=== PATIENT | female | born 1950 | race Caucasian/White ===

== ENCOUNTER 2020-12-01 12:05 | Emergency (ER) | payer MEDICARE, OTHER ==
[2020-12-01] MEDS ORDERED: TETANUS/DIPHTHERIA/PERTUSSIS 0.5 ML SYRINGE IM ONE (12:13)
[2020-12-01] MEDS ORDERED: BUFFERED LIDOCAINE 10 ML SYRINGE SUBQ STA (12:27)
--- NOTE | 2020-12-01 12:31 | ED Physician Documentation ---
PD HPI UPPER EXT INJURY - Stated complaint Stated Complaint: RT HAND WOUND - Chief complaint Chief Complaint: Laceration - History obtained from History obtained from: Patient - History of Present Illness Location: Right, Finger (5th digit) Type of injury: Laceration (from a ladder) Where injury occurred: Home Timing - onset: How many minutes ago (45) Timing - duration: Minutes (45) Timing - details: Abrupt onset Pain level max: 6 Pain level now: 4 Improved by: Rest Worsened by: Moving, Palpating Associated symptoms: No: Weakness, Numbness, Tingling, Swelling, Discolored Contributing factors: No: Anticoagulated Recently seen: Not recently seen - Additonal information Additional information: R handed. 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 - Past Surgical History Past Surgical History: Yes - Present Medications Home Medications: Ambulatory Orders Medication Instructions Recorded Confirmed Aspirin [Aspir 81] 81 mg PO DAILY 08/13/13 12/01/20 Multivitamin,Ther and Minerals 1 each PO DAILY 08/13/13 12/01/20 [Vitamin and Minerals] [place]-3 Fatty Acids/Fish Oil [Fish 1 each PO PRN PRN 12/01/20 12/01/20 Oil Conc 1,000 mg Softgel] - Allergies Allergies/Adverse Reactions: Allergies Allergy/AdvReac Type Severity Reaction Status Date / Time No Known Drug Allergies Allergy Verified 12/01/20 12:12 - Living Situation Living Situation: reports: With family Living Arrangement: reports: At home - Social History Does the pt smoke?: No Smoking Status: Never smoker Does the pt drink ETOH?: No Does the pt have substance abuse?: No - Immunizations Immunizations are current?: Yes PD ED PE NORMAL - Vitals Vital signs reviewed: Yes - General General: Alert and oriented X 3, No acute distress - HEENT HEENT: Moist mucous membranes - Derm Derm: Warm and dry - Neuro Neuro: Alert and oriented X 3 PD ED PE EXPANDED - Extremities GRACE UE/Hands Visual: 1 - laceration (Flap laceration, 1 cm, U-shaped. Neurovascular intact. No tendon injury) Results - Vitals Vitals: Vital Signs - 24 hr 12/01/20 12/01/20 12:08 13:35 Temperature 36.8 C Heart Rate 97 76 Respiratory 17 18 Rate Blood Pressure 196/90 H 135/72 H O2 Saturation 99 99 Oxygen O2 Source Room air Procedures - Laceration (location) R 5th digit Length in cm: 1 Wound type: Curved, Flap, Into subcut fat Neurovascular status: Sensory intact, Motor intact, Vascular intact Tendon involvement: Tendon intact Anesthesia: Lidocaine 1% Wound preparation: Irrigated copiously NS Skin layer closure: Nylon, Interrupted, Size #-0 - enter number (4), Sutures - enter # (2) Other: Patient tolerated well, No complications, Neurovascular intact, Tetanus booster given (tdap) PD MEDICAL DECISION MAKING - ED course Complexity details: reviewed results, re-evaluated patient, considered differential, d/w patient ED course: Wound was cleansed. 2 sutures were utilized to hold the flap in place. Patient counseled that this flap may not readhere and may off, but will provide a biological dressing for now. Wound was cleansed and bandaged. Tetanus up-to-date. Warnings of infection and instructions on wound care given at bedside. Also counseled on how to minimize scarring. Patient counseled regarding signs and symptoms for which I believe and urgent re-evaluation would be necessary. Patient with good understanding of and agreement to plan and is comfortable going home at this time This document was made in part using voice recognition software. While efforts are made to proofread this document, sound alike and grammatical errors may occur. Departure - Departure Disposition: 01 Home, Self Care Clinical Impression: Laceration Condition: Good Instructions: ED Laceration Hand Follow-Up: Your,doctor in 10 to 14 days [Other] Comments: Keep the wound clean. Return if you worsen. Follow-up with your doctor in 10 to 14 days for suture removal. Return if you notice redness, swelling or drainage from the wound. You can use the splint to help protect the finger for the next several days. As we discussed, the small flap of skin may still fall off and , depending on the blood supply reaching this piece of skin. Discharge Date/Time: 12/01/20 13:35
[2020-12-01] MEDS ORDERED: BACITRACIN ZINC OINT 1 PACKET TOP STA (13:21)
[2020-12-01 13:36] VITALS: BP 135/72
== END 2020-12-01 13:35 | disposition home or self-care (01) ==
LOC: ED 12:05
DX: S61.216A Laceration without foreign body of right little finger without damage to nail, initial encounter (principal); W11.XXXA Fall on and from ladder, initial encounter; Y92.009 Unspecified place in unspecified non-institutional (private) residence as the place of occurrence of the external cause; Z23 Encounter for immunization; Z79.82 Long term (current) use of aspirin
CPT/HCPCS: 12001; 90471; 90715; 99282; 99283; A9270

== ENCOUNTER 2022-07-09 11:10 | Outpatient (CLI) | payer MEDICARE, OTHER ==
--- NOTE | 2022-07-22 10:27 | Mammography Report ---
BILATERAL DIGITAL SCREENING MAMMOGRAM 3D/2D: 07/09/2022 CLINICAL: Routine screening. Comparison is made to exam dated: 08/27/2015 mammogram - [facility]. Both breasts are heterogeneously dense, which may obscure small masses (category c / 51-75% glandula r tissue). There are benign calcifications in both breasts. No significant masses, calcifications, or other findings are seen in either breast. There has been no significant interval change. IMPRESSION: BENIGN There is no mammographic evidence of malignancy. A 1 year screening mammogram is recommended. Based on the Tyrer Cuzick model (a risk assessment model) the patients lifetime risk is 4.3% and her 10 year risk is 3.5%. According to the ACR, ACS, and NCCN guidelines, an annual breast MRI exam kimberly g with mammogram is recommended if the patients lifetime risk is 20% or greater. This exam was interpreted at Station ID: [id number]. NOTE: For mammograms, a report in lay terms will be sent to the patient. Approximately 15% of breast malignancies will not be visualized mammographically. In the management of a palpable breast mass, a negative mammogram must not discourage biopsy of a clinically suspicious lesion. Electronically Signed By: Suman jamil/[email or web address]:07/21/2022 13:30:01 ACR BI-RADS Category 2: Benign Finding(s) 3342F PARENCHYMAL PATTERN: (D) - The breast(s) demonstrate(s) heterogeneously dense fibroglandular [place]. BI-RADS CATEGORY: (2) - 2 RECOMMENDATION: (ANNUAL) - Recommend routine annual screening mammography. [id number] 1 year screening LATERALITY: (B)
== END 2022-07-09 11:11 | disposition home or self-care (01) ==
LOC: DI.N 11:10
PROVIDERS: ATTEND Internal Medicine
DX: Z12.31 Encounter for screening mammogram for malignant neoplasm of breast (principal)

== ENCOUNTER 2023-01-06 08:08 | Outpatient (CLI) | payer MEDICARE, OTHER ==
[2023-01-06 12:08] LABS: BASOPHILS % (AUTO) 0.5 %; EOSINOPHILS # (AUTO) 0.1 10^3/uL (0.0-0.7); EOSINOPHILS % (AUTO) 1.1 %; HCT - HEMATOCRIT 44.2 % (37.0-47.0); HGB - HEMOGLOBIN 14.1 g/dL (12.0-16.0); LYMPHOCYTES # (AUTO) 1.6 10^3/uL (1.5-3.5); LYMPHOCYTES % (AUTO) 22.1 %; MEAN CORPUSCULAR HEMOGLOBIN 29.8 pg (27.0-31.0); MEAN CORPUSCULAR HGB CONC 31.9 g/dL (32.0-36.0); MEAN CORPUSCULAR VOLUME 93.4 fL (81.0-99.0); MEAN PLATELET VOLUME 9.8 fL (7.9-10.8); MONOCYTES # (AUTO) 0.6 10^3/uL (0.0-1.0); MONOCYTES % (AUTO) 8.1 %; NEUTROPHILS % (AUTO) 67.9 %; PLT - PLATELET COUNT 254 10^3/uL (130-450); RED BLOOD COUNT 4.73 10^6/uL (4.20-5.40); RED CELL DISTRIBUTION WIDTH 11.7 % (12.0-15.0); WHITE BLOOD COUNT 7.4 x10^3/uL (4.8-10.8)
[2023-01-06 12:23] LABS: ALBUMIN 4.5 g/dL (3.2-5.5); ALBUMIN/GLOBULIN RATIO 1.5 (1.0-2.2); ALKALINE PHOSPHATASE 64 IU/L (42-121); ALT ALANINE AMINOTRANSFERASE 16 IU/L (10-60); AST ASPARTATE AMINOTRANSFERASE 18 IU/L (10-42); BILIRUBIN,TOTAL 0.6 mg/dL (0.2-1.0); BUN - BLOOD UREA NITROGEN 17 mg/dL (6-20); CALCIUM 9.5 mg/dL (8.5-10.3); CARBON DIOXIDE - CO2 28 mmol/L (21-32); CHLORIDE 105 mmol/L (101-111); CHOL/HDL RATIO 4.1 (<4.4); CHOLESTEROL 260 mg/dL; CREATININE 0.6 mg/dL (0.4-1.0); GFR - MDRD 98 (>89); GLUCOSE 93 mg/dL (70-100); HDL CHOLESTEROL 63 mg/dL; LDL CHOLESTEROL,CALCULATED 182 mg/dL; LDL/HDL RATIO 2.9 (<4.4); POTASSIUM 4.2 mmol/L (3.5-5.0); SODIUM 140 mmol/L (135-145); TOTAL PROTEIN 7.6 g/dL (6.7-8.2); TRIGLYCERIDES 74 mg/dL; VLDL CHOLESTEROL 15 mg/dL
[2023-01-07 05:11] LABS: HCV AB Non Reactive (Non Reactive)
== END 2023-01-06 08:09 | disposition home or self-care (01) ==
LOC: LAB.N 08:08
PROVIDERS: ATTEND Internal Medicine
DX: Z00.00 Encounter for general adult medical examination without abnormal findings (principal); H91.90 Unspecified hearing loss, unspecified ear; R63.4 Abnormal weight loss; Z84.89 Family history of other specified conditions; Z13.6 Encounter for screening for cardiovascular disorders; Z11.59 Encounter for screening for other viral diseases
CPT/HCPCS: 36415; 80053; 80061; 83721; 84443; 85025; 86803

== ENCOUNTER 2023-01-22 08:38 | Outpatient (CLI) | payer MEDICARE, OTHER ==
--- NOTE | 2023-01-22 10:26 | CT Report ---
PROCEDURE: HEAD WO INDICATIONS: SYNCOPE TECHNIQUE: Noncontrast 4.5 mm thick angled axial sections acquired from the foramen magnum to the vertex. For r adiation dose reduction, the following was used: automated exposure control, adjustment of mA and/or kV according to patient size. COMPARISON: None. FINDINGS: Image quality: Excellent. CSF spaces: Basal cisterns are patent. No extra-axial fluid collections. Ventricles are normal in size and shape. Brain: Mild global cerebral volume loss and chronic microvascular ischemic change. No midline shift. No intracranial masses or hemorrhage. Huber-white matter interface is normal. Skull and face: Calvarium and visualized facial bones are intact, without suspicious lesions. Sinuses: Visualized sinuses and mastoids are clear. IMPRESSION: No intracranial mass or other acute intracranial abnormality. Mild global volume loss an d chronic microvascular ischemic changes. Reviewed by: Ric Baires MD on 01/22/2023 10:25 AM PDT Approved by: Ric Baires MD on 01/22/2023 10:25 AM PDT Station ID: [id number]
== END 2023-01-22 08:39 | disposition home or self-care (01) ==
LOC: DI 08:38
PROVIDERS: ATTEND Internal Medicine
DX: R55 Syncope and collapse (principal); G31.89 Other specified degenerative diseases of nervous system; I67.82 Cerebral ischemia

== ENCOUNTER 2023-07-01 19:22 | Outpatient (CLI) | payer MEDICARE, OTHER | END 2023-07-01 23:59 | disposition critical access hospital (66) | LOC: EMS 19:22 | DX: R07.89 Other chest pain (principal); R11.2 Nausea with vomiting, unspecified | CPT/HCPCS: A0425; A0427 ==

== ENCOUNTER 2023-07-01 19:42 | Emergency (ER) | payer MEDICARE, OTHER ==
[2023-07-01 20:01] LABS: BASOPHILS % (AUTO) 0.6 %; EOSINOPHILS # (AUTO) 0.1 10^3/uL (0.0-0.7); EOSINOPHILS % (AUTO) 0.8 %; HCT - HEMATOCRIT 36.6 % (37.0-47.0); HGB - HEMOGLOBIN 12.1 g/dL (12.0-16.0); LYMPHOCYTES # (AUTO) 1.4 10^3/uL (1.5-3.5); LYMPHOCYTES % (AUTO) 22.5 %; MEAN CORPUSCULAR HGB CONC 33.1 g/dL (32.0-36.0); MEAN CORPUSCULAR VOLUME 90.6 fL (81.0-99.0); MEAN PLATELET VOLUME 9.1 fL (7.9-10.8); MONOCYTES # (AUTO) 0.4 10^3/uL (0.0-1.0); MONOCYTES % (AUTO) 6.4 %; NEUTROPHILS # (AUTO) 4.3 10^3/uL (1.5-6.6); NEUTROPHILS % (AUTO) 69.5 %; PLT - PLATELET COUNT 237 10^3/uL (130-450); RED BLOOD COUNT 4.04 10^6/uL (4.20-5.40); RED CELL DISTRIBUTION WIDTH 11.8 % (12.0-15.0); WHITE BLOOD COUNT 6.2 x10^3/uL (4.8-10.8)
--- NOTE | 2023-07-01 20:10 | ED Physician Documentation ---
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 Patient states she ate a couple bites of pizza then threw it up and felt L lower chest and LUQ pain. recently had 14 day cardiac monitoring for dizzy spells that was normal. denies diarrhea, fever, sick contacts, urinary sx. 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 - Past Surgical History Past Surgical History: Yes - Present Medications Home Medications: Ambulatory Orders Medication Instructions Recorded Confirmed Aspirin [Aspir 81] 81 mg PO DAILY 08/13/13 07/01/23 Multivitamin,Ther and Minerals 1 each PO DAILY 08/13/13 07/01/23 [Vitamin and Minerals] [place]-3 Fatty Acids/Fish Oil [Fish 1 each PO PRN PRN 12/01/20 07/01/23 Oil Conc 1,000 mg Softgel] Amox/Clav 875/125 [Augmentin 1 tablet PO Q12H 7 Days #14 tablet 07/01/23 875/125 Tab] - Allergies Allergies/Adverse Reactions: Allergies Allergy/AdvReac Type Severity Reaction Status Date / Time No Known Drug Allergies Allergy Verified 07/01/23 20:41 - Social History Does the pt smoke?: No Smoking Status: Never smoker Does the pt drink ETOH?: No Does the pt have substance abuse?: No - Immunizations Immunizations are current?: Yes PD ED PE NORMAL - Vitals Vital signs reviewed: Yes - General General: Alert and oriented X 3, No acute distress, Well developed/nourished - HEENT HEENT: Atraumatic, PERRL, EOMI, Moist mucous membranes, Pharynx benign - Neck Neck: Supple, no meningeal sign - Cardiac Cardiac: RRR - Respiratory Respiratory: No respiratory distress, Clear bilaterally - Abdomen Abdomen: Non tender, Non distended - Back Back: No CVA TTP - Derm Derm: Normal color, Warm and dry - Neuro Neuro: Alert and oriented X 3, No motor deficit, No sensory deficit - Psych Psych: Normal mood, Normal affect Results - Vitals Vitals: Vital Signs - 24 hr 07/01/23 07/01/23 07/01/23 19:40 20:24 22:30 Temperature 36.1 C L Heart Rate 84 70 74 Respiratory 18 17 16 Rate Blood Pressure 162/82 H 136/81 H 139/74 H O2 Saturation 98 98 96 Oxygen O2 Source Room air - EKG (time done) 1957 EKG releavant findings:: EKG personally interpreted by author of this note. Relevant findings are: Rate: Rate (enter#) (73) Rhythm: NSR Ivins: LAD Intervals: Normal GA QRS: Normal Ischemia: Normal ST segments Compare to prior EKG: Old EKG unavailable - Labs Labs: Laboratory Tests 07/01/23 07/01/23 07/01/23 19:57 19:57 21:51 WBC 6.2 RBC 4.04 L Hgb 12.1 Hct 36.6 L MCV 90.6 MCH 30.0 MCHC 33.1 RDW 11.8 L Plt Count 237 MPV 9.1 Neut # (Auto) 4.3 Lymph # (Auto) 1.4 L Cocke # (Auto) 0.4 Eos # (Auto) 0.1 Baso # (Auto) 0.0 Absolute Nucleated RBC 0.00 Nucleated RBC % 0.0 Sodium 138 Potassium 3.7 Chloride 102 Carbon Dioxide 26 Anion Gap 10.0 BUN 24 H Creatinine 0.5 L Estimated GFR (MDRD) 121 Glucose 126 H Calcium 9.4 Total Bilirubin 0.4 AST 12 ALT 8 L Alkaline Phosphatase 75 Troponin I High Sens 6.2 8.2 Total Protein 6.8 Albumin 4.0 Globulin 2.8 Albumin/Globulin Ratio 1.4 Lipase 29 PD Medical Decision Making - ED course ED course: 72yF presents for n/v and LUQ/L lower chest pain. cbc, abdominal panel, ekg, cxr ordered. will f/u results. CXR shows hiatal hernia that appears to be responsible for her symptoms. patient states she had relief with her home rolaids and is now feeling much more comfortable. Cta/p ordered to evaluate further and r/o Strangulated hernia. 1 L of IV fluids provided as well. Second troponin ordered. initial Trop, CBC, abdominal panel looked benign. CT showed uterine mass which she knew about already, hepatic hemangioma which she will f/u with pcp about. also with hiatal hernia without evidence of strangulation. she does have diverticulitis as well and antibiotics were sent to pharmacy. Plan is to have her follow-up outpatient with general surgery for evaluation for hernia repair. She can also follow-up with her primary care provider. Return precautions given. Departure - Departure Disposition: 01 Home, Self Care Clinical Impression: Chest pain, Abdominal pain, Nausea and vomiting, Hiatal hernia, Diverticulitis Condition: Stable Instructions: Hiatal Hernia Follow-Up: Torito Pang MD [Provider Admit Priv/Credential] - Prescriptions: Amox/Clav 875/125 [Augmentin 875/125 Tab] 1 tablet PO Q12H 7 Days #14 tablet Comments: You were seen in the emergency department for hiatal hernia, diverticulitis, uterine and liver lesions. Since you already know about the uterine and liver spots, you can follow up with your primary care provider about that. I am providing antibiotics for the Diverticulitis and a surgeon referral for the hiatal hernia. Please follow-up with general surgery clinic as well as your primary care provider and return to the emergency department if you have any new or worsening symptoms or other concerns. Electronic prescription for antibiotics sent to [facility] in [place]. Forms: PCP List
[2023-07-01 20:17] LABS: ALBUMIN/GLOBULIN RATIO 1.4 (1.0-2.2); BILIRUBIN,TOTAL 0.4 mg/dL (0.2-1.0); CALCIUM 9.4 mg/dL (8.5-10.3); CREATININE 0.5 mg/dL (0.6-1.3); POTASSIUM 3.7 mmol/L (3.5-4.5); TOTAL PROTEIN 6.8 g/dL (6.4-8.9)
[2023-07-01] MEDS ORDERED: ONDANSETRON 4 MG/2 ML VIAL IVP STA (20:17)
--- NOTE | 2023-07-01 20:17 | XRAY Report ---
PROCEDURE: Chest 1 View X-Ray INDICATIONS: Chest pain TECHNIQUE: One view of the chest was acquired. COMPARISON: None. FINDINGS: Surgical changes and devices: None. Lungs and pleura: No pleural effusions or pneumothorax. Lungs are clear. Mediastinum: There is a large hiatal hernia. Heart size is normal. Bones and chest wall: No suspicious bony lesions. Overlying soft tissues appear unremarkable. IMPRESSION: No acute cardiopulmonary disease. Reviewed by: Johan Villaseñor MD on 07/01/2023 8:15 PM PDT Approved by: Johan Villaseñor MD on 07/01/2023 8:15 PM PDT Station ID: [id number]
[2023-07-01 20:23] LABS: TROPONIN I HIGH SENSITIVITY 6.2 ng/L (2.3-14.8)
[2023-07-01] MEDS ORDERED: SODIUM CHLORIDE 0.9% 1,000 ML IV STA (20:44)
[2023-07-01] MEDS ORDERED: IOVERSOL 320 100 ML VIAL IVP ONE (21:58)
--- NOTE | 2023-07-01 22:59 | CT Report ---
PROCEDURE: ABDOMEN/PELVIS W INDICATIONS: hiatal hernia on CXR. CC n/v L chest pain CONTRAST: 100mL Opti TECHNIQUE: After the administration of intravenous contrast, 5 mm thick sections acquired from the diaphragms to the symphysis. 5 mm thick coronal and sagittal reformats were acquired. For radiation dose reducti on, the following was used: automated exposure control, adjustment of mA and/or kV according to yandy ent size. COMPARISON: Chest x-ray 07/05/2023. CT abdomen pelvis 08/13/2013. FINDINGS: Image quality: Excellent. Lung bases:There is atelectasis in the left lower lobe along the large hiatal hernia. Heart: Heart is normal in size. There is a large paraesophageal hiatal hernia. No associated gastric wall thickening or evidence of obstruction. ABDOMEN: Liver:There is an oval hypoattenuating lesion posteriorly in segment 7 of the right hepatic lobe robyn suring up to 3.5 x 2.1 cm in transverse dimension with eccentric discontinuous peripheral hypervascul ar enhancement. Findings are compatible with a cavernous hemangioma. This appears similar in size com pared to the prior noncontrast CT. Gallbladder: Within normal limits without calcified gallstones. Biliary ducts: No biliary ductal dilatation. Pancreas: Unremarkable. Spleen: Normal in size. Adrenal Glands: No adrenal nodules. Kidneys and Ureters: No hydronephrosis. Stomach and Bowel: Stomach and small bowel loops are normal in caliber and wall thickness. The appen leticia is normal. There is colonic diverticulosis. Mild colonic wall thickening is demonstrated in the s igmoid colon with pericolonic fat stranding. There is also associated diverticular wall thickening. F indings are consistent with diverticulitis. No diverticular abscess or macroscopic free air. Peritoneum: No abnormal intraperitoneal fluid. No free air. Ventral Wall: No hernia. Abdominal Nodes: No retroperitoneal or mesenteric adenopathy by size criteria. Vessels: Aorta and inferior vena cava are normal in size. PELVIS: Pelvic Organs:There is a hypervascular heterogeneously enhancing mass within the uterus measuring up to 2.8 x 2.4 cm in transverse dimension on series 2 image 70. Bladder: Unremarkable. Pelvic Nodes: No enlarged lymph nodes. Miscellaneous: No inguinal hernias. Bones: Visualized osseous structures demonstrate no suspicious lesions. IMPRESSION: 1. Acute diverticulitis in the sigmoid colon. No evidence of diverticular abscess or macroscopic free air. 2. Large paraesophageal hiatal hernia without evidence of obstruction or wall thickening to suggest v olvulus. 3. Hypervascular enhancing mass within the uterus. The findings are nonspecific and may represent a f ibroid but endometrial carcinoma cannot be excluded. Recommend gynecologic consultation. 4. Right hepatic lobe lesion compatible with a cavernous hemangioma. Reviewed by: Johan Villaesñor MD on 07/01/2023 10:57 PM PDT Approved by: Johan Villaseñor MD on 07/01/2023 10:57 PM PDT Station ID: [id number]
[2023-07-01 23:49] LABS: BILIRUBIN,URINE NEGATIVE (NEGATIVE); GLUCOSE, URINE (UA) NEGATIVE (NEGATIVE); KETONES,URINE (UA) TRACE mg/dL (NEGATIVE); LEUKOCYTE ESTERASE, URINE TRACE (NEGATIVE); NITRITE,URINE NEGATIVE (NEGATIVE); OCCULT BLOOD,URINE NEGATIVE (NEGATIVE); PROTEIN,URINE NEGATIVE (NEGATIVE); UROBILINOGEN,URINE 0.2 (NORMAL) E.U./dL (NORMAL)
[2023-07-01 23:52] LABS: CLARITY,URINE CLEAR (CLEAR)
[2023-07-01 23:54] VITALS: BP 145/71; O2SAT 98
[2023-07-01 23:55] LABS: WBC,URINE 0-3 /HPF (0-5)
[2023-07-01 23:56] LABS: BACTERIA,URINE Rare /HPF (None Seen); RBC,URINE 0-5 /HPF (0-5); SQUAMOUS EPITHELIAL CELL,UR FEW Squamous (<= Few)
== END 2023-07-01 23:52 | disposition home or self-care (01) ==
LOC: EDUNIT# → ED 19:42
DX: K44.9 Diaphragmatic hernia without obstruction or gangrene (principal); K57.32 Diverticulitis of large intestine without perforation or abscess without bleeding; Z87.891 Personal history of nicotine dependence
CPT/HCPCS: 36415; 71045; 74177; 80053; 81001; 83690; 84484; 85025; 87086; 93005; 96374; 99284; Q9967; 81003

== ENCOUNTER 2024-01-14 07:34 | Outpatient (CLI) | payer MEDICARE, OTHER ==
[2024-01-14 12:22] LABS: BASOPHILS # (AUTO) 0.1 10^3/uL (0.0-0.1); BASOPHILS % (AUTO) 1.1 %; EOSINOPHILS # (AUTO) 0.1 10^3/uL (0.0-0.7); EOSINOPHILS % (AUTO) 2.8 %; HCT - HEMATOCRIT 43.8 % (37.0-47.0); LYMPHOCYTES # (AUTO) 1.8 10^3/uL (1.5-3.5); LYMPHOCYTES % (AUTO) 38.6 %; MEAN CORPUSCULAR HEMOGLOBIN 29.7 pg (27.0-31.0); MEAN CORPUSCULAR VOLUME 92.8 fL (81.0-99.0); MEAN PLATELET VOLUME 9.4 fL (7.9-10.8); MONOCYTES # (AUTO) 0.4 10^3/uL (0.0-1.0); MONOCYTES % (AUTO) 8.7 %; NEUTROPHILS # (AUTO) 2.3 10^3/uL (1.5-6.6); NEUTROPHILS % (AUTO) 48.6 %; PLT - PLATELET COUNT 276 10^3/uL (130-450); RED BLOOD COUNT 4.72 10^6/uL (4.20-5.40); RED CELL DISTRIBUTION WIDTH 12.3 % (12.0-15.0); WHITE BLOOD COUNT 4.7 x10^3/uL (4.8-10.8)
[2024-01-14 12:43] LABS: CHOL/HDL RATIO 4.1 (<4.4); CHOLESTEROL 269 mg/dL; HDL CHOLESTEROL 66 mg/dL; LDL CHOLESTEROL,CALCULATED 176 mg/dL; LDL/HDL RATIO 2.7 (<4.4); TRIGLYCERIDES 136 mg/dL (48-352); VLDL CHOLESTEROL 27 mg/dL
[2024-01-14 12:54] LABS: THYROID STIMULATING HORMONE 4.43 uIU/mL (0.34-5.60)
== END 2024-01-14 07:35 | disposition home or self-care (01) ==
LOC: LAB.N 07:34
PROVIDERS: ATTEND Internal Medicine
DX: Z00.00 Encounter for general adult medical examination without abnormal findings (principal); D64.9 Anemia, unspecified; C44.91 Basal cell carcinoma of skin, unspecified; K57.92 Diverticulitis of intestine, part unspecified, without perforation or abscess without bleeding; H91.90 Unspecified hearing loss, unspecified ear; K44.9 Diaphragmatic hernia without obstruction or gangrene; E78.5 Hyperlipidemia, unspecified
CPT/HCPCS: 36415; 80061; 83721; 84443; 85025

== ENCOUNTER 2024-01-20 12:41 | Outpatient (CLI) | payer MEDICARE, OTHER ==
--- NOTE | 2024-01-21 09:51 | Mammography Report ---
BILATERAL DIGITAL SCREENING MAMMOGRAM 3D/2D: 01/20/2024 CLINICAL: Routine screening. Comparison is made to exams dated: 07/09/2022 mammogram - [facility] and 08/27/2015 mammogram - [facility]. Both breasts are heterogeneously dense, which may obscure small masses (category c / 51-75% glandular tissue). There are benign calcifications in both breasts. No significant masses, calcifications, or other findings are seen in either breast. There has been no significant interval change. IMPRESSION: BENIGN There is no mammographic evidence of malignancy. A 1 year screening mammogram is recommended. Based on the Tyrer Cuzick model (a risk assessment model) the patient's lifetime risk is 3.7% and her 10 year risk is 3.7%. According to the ACR, ACS, and NCCN guidelines, an annual breast MRI exam kimberly g with mammogram is recommended if the patient's lifetime risk is 20% or greater. This exam was interpreted at Station ID: [id number]. NOTE: For mammograms, a report in lay terms will be sent to the patient. Approximately 15% of breast malignancies will not be visualized mammographically. In the management of a palpable breast mass, a negative mammogram must not discourage biopsy of a clinically suspicious lesion. Electronically Signed By: Kirk [email or web address]:01/20/2024 13:46:13 letter sent: No_Letter ACR BI-RADS Category 2: Benign Finding(s) 3342F PARENCHYMAL PATTERN: (D) - The breast(s) demonstrate(s) heterogeneously dense fibroglandular [place]. BI-RADS CATEGORY: (2) - 2 RECOMMENDATION: (ANNUAL) - Recommend routine annual screening mammography. [id number] 1 year screening LATERALITY: (B)
== END 2024-01-20 12:42 | disposition home or self-care (01) ==
LOC: DI.N 12:41
PROVIDERS: ATTEND Internal Medicine
DX: Z12.31 Encounter for screening mammogram for malignant neoplasm of breast (principal); R92.333 Mammographic heterogeneous density, bilateral breasts

== ENCOUNTER 2024-02-24 18:39 | Outpatient (CLI) | payer MEDICARE, OTHER ==
--- NOTE | 2024-02-25 10:18 | Ultrasound Report ---
PROCEDURE: Pelvic w/Transvaginal INDICATIONS: UTERINE MASS TECHNIQUE: Real-time scanning was performed of the pelvic organs, with image documentation. Additional endovagi nal scanning was necessary due to incomplete visualization of the adnexal and endometrial structures by transabdominal scanning. COMPARISON: None. FINDINGS: Uterus: Uterus is anteverted and normal in size at 6.2 x 3.2 x 4.8 cm. The myometrium is heterogene ous. The endometrium measures 3 mm in combined thickness. Intramural fibroid with submucosal interf hilda in the mid uterine segment along the posterior margin, measuring 3 x 2.4 x 3.4 cm. Ovaries: Ovaries are atrophied and not well visualized. No adnexal mass. Other: No pathologic free abdominal or pelvic fluid. IMPRESSION: Intramural fibroid with submucosal interface along the posterior margin of the uterus, corresponding to the uterine mass seen on comparison CT. Endometrial stripe measures 3 mm, without endometrial mass identified. Reviewed by: Carlo Kirk MD on 02/25/2024 10:16 AM PDT Approved by: Carlo Kirk MD on 02/25/2024 10:16 AM PDT Station ID: [id number]
== END 2024-02-24 18:40 | disposition home or self-care (01) ==
LOC: DI 18:39
PROVIDERS: ATTEND Obstetrics & Gynecology
DX: D25.1 Intramural leiomyoma of uterus (principal)

== ENCOUNTER 2024-04-12 08:16 | Outpatient (CLI) | payer MEDICARE, OTHER ==
[2024-04-12 12:05] LABS: CHOL/HDL RATIO 2.3 (<4.4); CHOLESTEROL 175 mg/dL; HDL CHOLESTEROL 75 mg/dL; LDL CHOLESTEROL,CALCULATED 80 mg/dL; LDL/HDL RATIO 1.1 (<4.4); TRIGLYCERIDES 99 mg/dL (48-352); VLDL CHOLESTEROL 20 mg/dL
== END 2024-04-12 08:17 | disposition home or self-care (01) ==
LOC: LAB.N 08:16
PROVIDERS: ATTEND Internal Medicine
DX: K57.92 Diverticulitis of intestine, part unspecified, without perforation or abscess without bleeding (principal); E78.5 Hyperlipidemia, unspecified
CPT/HCPCS: 36415; 80061; 83721

== ENCOUNTER 2024-06-28 07:39 | Day surgery (SDC) | payer MEDICARE, OTHER ==
--- NOTE | 2024-06-28 06:19 | HISTORY & PHYSICAL EXAMINATION ---
PMH/PSH - Past Medical History Cardiovascular: positive: High cholesterol Respiratory: positive: None Endocrine/Autoimmune: positive: None GI: positive: None [employer]: positive: Fibroids : positive: Frequency HEENT: positive: Chronic hearing loss Psych: positive: None Musculoskeletal: positive: None Derm: positive: None MRSA Hx?: No - Past Surgical History General: positive: Other Social & Family Hx - Social History Does the pt smoke?: No Smoking Status: Never smoker Does the pt drink ETOH?: No Does the pt have substance abuse?: No Meds/Allgy - Home Medications Home Medications: Ambulatory Orders Medication Instructions Recorded Confirmed Atorvastatin [Lipitor] 10 mg PO DAILY 02/22/24 06/27/24 - Allergies Allergies/Adverse Reactions: Allergies Allergy/AdvReac Type Severity Reaction Status Date / Time No Known Drug Allergies Allergy Verified 07/01/23 20:41 Impression/Plan - Problem List Problem List: History of Present Illness: Estephania is a 73 year old female who is referred to my office for colonoscopy. She has no lower GI symptoms and her last CS examination was 20 years ago. She does have a FH of colon cancer (father) and a personal history of diverticulosis found incidentally on a CT scan performed in June 2023 during an evaluation for upper abdominal pain thought due to a hiatal hernia that was seen on CXR imaging. That visit was initiated due to dysphagia for solid food which has recurred since then such that she needs to vomit after certain meals. She denies the use of PPI but did smoke cigarettes years ago. Mallampati Score Class I: The soft palate, tonsils, anterior and posterior pillars, and the entire uvula are easily visible ASA Physical Status Classification System ASA I: A normal healthy patient Allergies: Allergies Reviewed: Done No Known Allergies Social History Reviewed: Done Medications: Meds Reviewed: Done No Known Medications Problems: Problems Reviewed: Done Uterine mass (ICD-625.8) (GEP70-S78.89) Cervix, screening for malignant neoplasm (ICD-V76.2) (UUJ24-C49.4) Suture removal (ICD-V58.32) (AEI62-P38.02) Past Medical History: Hard of hearing Past Surgical History: hernia repair x2 [Family History-CCC] Risk Factors-CCC: Smoked Tobacco Use: Former smoker Year Quit: 1984 Years Since Last Quit: 39 Smokeless Tobacco Use: Never Alcohol Use: no Drug Use: no Marijuana Use: no Review of Systems See HPI Vital Signs: Patient Profile: 73 Years Old Female Height: 63 inches Weight: 96 pounds BMI: 17.07 Temp: 98.0 degrees F oral Pulse rate: 70 / minute Resp: 20 per minute BP sittin / 72 Vitals Entered By: Vani Benites RN (May 08, 2024 2:42 PM) Problems were reviewed with the patient during this visit. Medications were reviewed with the patient during this visit. Allergies were reviewed with the patient during this visit. No known allergies. Physical Exam General: well developed, well nourished, in no acute distress Head: normocephalic and atraumatic Eyes: PERRLA/EOM intact, conjunctiva and sclera clear Ears: Normal hearing Nose: no deformity, discharge, inflammation, or lesions Mouth: no deformity or lesions with good dentition Neck: no masses, thyromegaly, or abnormal cervical nodes Lungs: clear bilaterally to A & P Heart: regular rate and rhythm, S1, S2 without murmurs, rubs, gallops, or clicks Abdomen: bowel sounds positive; abdomen soft and non-tender without masses, organomegaly, or hernias noted Msk: no deformity or scoliosis noted with normal posture and gait Pulses: pulses normal in all 4 extremities Extremities: no clubbing, cyanosis, edema, or deformity noted with normal full range of motion of all joints Neurologic: no focal deficits, CN II-XII grossly intact with normal reflexes, coordination, muscle strength and tone Skin: intact without lesions or rashes Cervical Nodes: no significant adenopathy Psych: alert and cooperative; normal mood and affect; normal attention span and concentration Blood Pressure: Today's BP: 137/72 mmHg Assessment: 1) Family history of colon cancer; Personal history of diverticulosis. Given her + FH for colon cancer and the 20 year lapse in time since her last examination as well as her healthy status, I agree with her PCP's recommendation for screening colon examination. 2) Dysphagia for solid food with known hiatal hernia - she may have chronic GERD and Heller's Recommendation: 1) EGD and Colonoscopy. Estephania understands that esophageal dilation may be performed if a stricture is identified. Consent: Estephania has been counseled for the procedure, it's indications, risks, benefits and expected outcome as well as alternative therapies. We specifically discussed risks associated with anesthesia and insertion of the endoscope into the large intestine which includes bleeding and injury to the colon which may require surgical intervention and insertion of the endoscope into the UGI tract which includes bleeding and/or injury to the esophagus which may require surgical intervention. Estephania understands, agrees, and consents to the proposed operative strategy and requests that we proceed with the procedure as outlined in our discussion. Jostin Chapa MD, [facility] General Surgery Service Date: 06/28/2024; 09:30 Chart Update: Patient examined, chart reviewed. There are no changes to the patient's clinical status that would preclude proceeding with the scheduled procedure today. Jostin Chapa MD, [facility] General Surgery Service
[2024-06-28] MEDS: LACTATED RINGERS 1,000 ML IV ONE ×2 (07:47→10:12)
--- NOTE | 2024-06-28 09:14 | ANESTHESIA ---
Pre-Anesthesia VS, & Labs - Diagnosis screening and hiatal hernia - Procedure EGD, colonoscopy Vital Signs: Temp Pulse Resp BP Pulse Ox O2 Flow Rate 36.1 C L 59 L 12 148/70 H 100 06/28/24 07:47 06/28/24 07:47 06/28/24 07:47 06/28/24 07:47 06/28/24 07:47 Height: 5 ft 3 in Weight (kg): 43.7 kg Body Mass Index: 17.0 BMI Classification: Underweight - NPO Other (prep last at 4:45am) - Is Patient ?: No Home Medications and Allergies Atorvastatin [Lipitor] 10 mg PO DAILY 02/22/24 Allergies/Adverse Reactions: Allergies Allergy/AdvReac Type Severity Reaction Status Date / Time No Known Drug Allergies Allergy Verified 07/01/23 20:41 Anes History & Medical History - Anesthetic History Anesthesia Complications: reports: No previous complications - Medical History Cardiovascular: reports: High cholesterol Pulmonary: reports: None Gastrointestinal: reports: None Urinary: reports: Frequency Musculoskeletal: reports: None Endocrine/Autoimmune: reports: None Skin: reports: None Smoking Status: Former smoker History of Cancer?: No - Surgical History General: reports: Other (hernia) Exam General: Alert, Oriented x3 Dental: WNL Mouth Opening: Greater than 4 Fingerbreadths Neck Mobility: Normal Mallampati classification: II Thyromental Distance: greater than 6 cm Respiratory: Lungs clear Cardiovascular: Regular rate Plan Anesthesia Type: Total IV Consent for Procedure(s) Verified and Reviewed: Yes Code Status: Attempt Resuscitation ASA classification: 2-Mild systemic disease Is this case an emergency?: No
[2024-06-28] MEDS ORDERED: LIDOCAINE-PF 2% 10 ML AMP SUBQ ONE (09:18)
[2024-06-28] MEDS ORDERED: PROPOFOL 500 MG/50 ML 500 MG/50 ML VIAL ONE (09:19)
[2024-06-28 10:42] VITALS: BP 137/68; O2SAT 100
--- NOTE | 2024-06-28 15:37 | ANESTHESIA POST OP EVALUATION ---
Anesthesia Post Eval - Post Anesthesia Eval Vitals: Last Vital Signs Temp 36.1 C L 06/28/24 10:12 Pulse 73 06/28/24 10:37 Resp 17 06/28/24 10:37 BP 137/68 H 06/28/24 10:37 Pulse Ox 100 06/28/24 10:37 O2 Flow Rate CV Function Including HR & BP: Stable Pain Control: Satisfactory Nausea & Vomiting: Negative Mental Status: Baseline Respiratory Status: Airway Patent Hydration Status: Satisfactory Anesthesia Complications: None
== END 2024-06-28 07:40 | disposition home or self-care (01) ==
LOC: SDS 07:39
PROVIDERS: ATTEND Surgery
DX: Z12.11 Encounter for screening for malignant neoplasm of colon (principal); R13.10 Dysphagia, unspecified; K44.9 Diaphragmatic hernia without obstruction or gangrene; R12 Heartburn; Z80.0 Family history of malignant neoplasm of digestive organs; Z87.891 Personal history of nicotine dependence
CPT/HCPCS: 43235; G0105; J7120